=== PATIENT | male | born 1940 | race Caucasian/White ===

== ENCOUNTER 2017-10-08 12:31 | Emergency (ER) | payer MEDICARE, OTHER, SELFPAY ==
[2017-10-08 12:32] VITALS: BP 179/95; PULSE 64; RESP 20; TEMP 35.9; O2SAT 97; BMI 37.8
--- NOTE | 2017-10-08 14:00 | RAD_ITS ---
STUDY: X-RAY - LEFT SHOULDER REASON FOR EXAM: Male, 77 years old. Fall. Shoulder pain TECHNIQUE: 2 view(s) of the shoulder. COMPARISON: None. FINDINGS: There is moderate degenerative arthrosis of the glenohumeral articulation. There is degenerative arthrosis of the acromioclavicular joint without inferior osseous spur formation. Normal acromion. Normal humeral head and visualized proximal humerus. The soft tissue structures are unremarkable. Normal visualized pulmonary apex. 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 Electronically Signed: Alvin Martinez MD at 14:50 EDT Tel , Service support ,
--- NOTE | 2017-10-08 15:06 | ED.DCSUM_ITS ---
- ER Visit Summary Date of Service: 10/08/17 Chief Complaint: Left shoulder injury History of Present Illness: The patient is a 77 M who states that today after losing balance he started to fall and his left arm was AB adducted to 90? and was stretched behind him. He states he has a history of torn rotator cuff muscles but never did surgery for it. He has not seen orthopedics for some time and would prefer to see somebody locally. He states that he has limited range of motion because of the pain. He states that twice he felt the shoulder pop once as he got up after the injury once in the triage area. He is right- handed. Physical Examination: Afebrile vital signs are stable Patient is limited range of motion of the left shoulder secondary to pain. I am able to range it though painfully. He has a positive apprehension test. He is tender over the anterior capsule. No tenderness over supraspinatus or infraspinatus musculature. No tenderness over the pectoralis major muscles. No subscapularis tenderness. Vascular intact distally Test Results: X-rays did not reveal a fracture. Emergency Department Course and Treatment: This could be a muscle strain versus tear or could be a subluxation given the popping sensation he felt. Patient will be placed in a sling. Patient will rest we talked about treatment for frozen shoulder and how to prevent it. I will refer him to Dr. Wyatt he was on no doc orthopedics. He states he has pain medication at home from prior back surgery. Impression: 1. Left shoulder muscle strain This note was generated with [employer] dictation software. It may contain incorrect words, spelling, and punctuation that were not noted in review of the chart prior to signing ED Disposition - Plan for ED Patient: Disposition: Home or Assisted Living Chief Complaint: Upper Extremity Injury Instructions: ED Sprain Shoulder Referrals: Rahul Wyatt DO [STAFF PHYSICIAN] - (call to arrange follow up)
[2017-10-08 15:20] VITALS: PULSE 80; RESP 16; O2SAT 98
== END 2017-10-08 15:21 | disposition home or self-care (01) ==
PROVIDERS: Emergency Provider Emergency Medicine; Family Provider Family Medicine; PCP Family Medicine
DX: S46.912A Strain of unspecified muscle, fascia and tendon at shoulder and upper arm level, left arm, initial encounter (principal); X50.1XXA Overexertion from prolonged static or awkward postures, initial encounter; Y93.9 Activity, unspecified; Y92.9 Unspecified place or not applicable; E66.9 Obesity, unspecified; Z86.79 Personal history of other diseases of the circulatory system; Z86.39 Personal history of other endocrine, nutritional and metabolic disease; Z87.891 Personal history of nicotine dependence
CPT/HCPCS: 73030; 99283

== ENCOUNTER → 2018-09-20 | Outpatient (CLI) | payer MEDICARE, OTHER, SELFPAY ==
--- NOTE | 2018-09-20 15:14 | CT_ITS ---
STUDY: CT ABDOMEN AND PELVIS WITH CONTRAST REASON FOR EXAM: Male, 78 years old. Bloating x 5 days. RADIATION DOSAGE (If Supplied By Facility): CTDIvol = ( 18.73 ) mGy, DLP = ( 1398.15 ) mGycm TECHNIQUE: Transaxial images were obtained from the dome of the diaphragm to the symphysis pubis with oral contrast. 100 IV/Oral Isovue 300 was administered. Sagittal and coronal images were reconstructed. Individualized dose optimization techniques were used for this CT. COMPARISON: None. FINDINGS: The visualized lung bases are unremarkable. The visualized portions of the heart are within normal limits. Normal liver. The patent portal vein diameter is 14 mm. Normal gallbladder and extrahepatic biliary system. Normal spleen. There is some fatty infiltration of the pancreas, most prominent at the pancreatic head. Normal bilateral adrenal glands. Well-defined 2.7 x 2.45 x 2.65 cm cortical cyst seen at the tip of the upper pole of the right kidney. A second similar-appearing [id number] x 2.5 cm cortical cyst seen at the posterior midpole. Is a 1.55 x 1.2 x 1.4 cm hypodense cyst at the medial midpole of the left kidney. 5 mm rounded hypodensity consistent with a cyst seen at the tip of the left upper pole. No hydronephrosis. Normal visualized stomach. Normal small intestine. Normal colon. There is non-visualization of the appendix. There is mild to moderate atherosclerotic calcification of the abdominal aorta and proximal iliac arteries, without a demonstrated aneurysm. [id number] heterotrophic calcification also seen in the visualized common femoral arteries. Normal inferior vena cava. Normal retroperitoneum. Incompletely distended urinary bladder. Normal visualized prostate gland. Normal abdominal wall. There are diffuse degenerative changes of the visualized spine, including multilevel bridging anterior endplate osteophytes of the thoracic spine. The patient has undergone prior L4 laminectomies and posterior L4-5 fusion with metal hardware. Bilateral transpedicular screws at these levels are connected on either side the longitudinal metal rods. Degenerative change also noted at the pubic symphysis. Well corticated focal invaginations of the superior L2 and L3 vertebral endplates are consistent with benign Schmorl's nodes. CT/Abdomen/Pelvis WITH Contrast IMPRESSION: 1. The bowel is unremarkable without sign of distention/obstruction. The appendix is not visualized. 2. Bilateral renal cortical cysts, as described. No hydronephrosis. 3. Atherosclerotic vascular calcifications, as noted. No demonstrated aortic aneurysm. 4. Prior L4 laminectomies and posterior L4-5 fusion with metal hardware. There are multilevel degenerative changes of the spine. Electronically Signed: Buddy Portillo MD at 18:14 EDT , Service support ,
[2018-09-20 17:45] LABS: CREATININE FINGERSTICK 1.3 mg/dL (0.70-1.30)
== END | disposition home or self-care (01) ==
LOC: CT 15:11
PROVIDERS: Family Provider Internal Medicine; PCP Internal Medicine; Referring Provider Student in an Organized Health Care Education/Training Program; Visit Provider Student in an Organized Health Care Education/Training Program
DX: R10.31 Right lower quadrant pain (principal); R19.7 Diarrhea, unspecified; R11.0 Nausea
CPT/HCPCS: 74177; Q9967

== ENCOUNTER 2019-07-01 08:30 | Outpatient (RCR) | payer MEDICARE, OTHER, SELFPAY ==
--- NOTE | 2019-05-30 09:17 | HP.PTEVAL_ITS ---
Patient's Visit Information AIDEE MARTIN is a 78 year old M referred to Physical Therapy by Eyad Alexander DO with a diagnosis of Chronic neck pain. Date of Evaluation: 05/30/19 Physical Therapist: Servando Clarke, PT, ATC - Visit Plan Frequency: 2-3x /Week Duration: 4-6 Weeks Plan: Trial of c-tx today. 17#/10# 30 sec/10 sec x 10 min. Postural edu, DTR to c/s, PROM/mobs to c/s, Dry needling, C-Tx, and HEP - Subjective Subjective: Pt reports he has had neck pain for several weeks. Pt reports he had xrays recently that showed his neck is out of alignment. Pt reports his pain is intermittent in nature. Pt notes the only way to get rid of his pain is to lye down on his R side. Pt reports the pain originates in his neck and radiates down to his L shoulder. Pt notes he also has pain that radiates into his interscapula r region. Pt notes he had a cotisone injection a few weeks ago which helped his pain. 3/10 pain at rest, 7/10 pain at worst. - Pain neck pain Pain Intensity (Out of 10): 3 Pain Intensity Range: 7 - Objective Neuro: B UE sensation is WNL to light touch. B bicepital reflex= 1/3. Palpation: sig muscle guarding throughout the c/s. No obvious deformity. MMT: R UE is grossly 4+/5 throughout. L UE is 4/5 and painful secondary to prior injuries. ROM: Pt is severely limited with SB, extension, and retraction. Moderate limiteations with all other movements. Special tests: apleys compression and distraction tests are positive - Goals Goal 1:: Decrease neck pain x 50% to aid with IADL's Goal Time Frame: 4-6 Weeks Goal 2:: Decrease the frequency and intensity of R UE radiculopathy x 50% to aid with IADL's Goal Time Frame: 4-6 Weeks Goal 3:: I with HEP Goal Time Frame: 4-6 Weeks - Rehabilitation Potential Physical Therapy Diagnosis: Pt has R UE radiculopathy, neck pain, and limited c/s ROM secondary to deg changes in the c/s Rehabilitation Potential: Good - Anticipated Interventions Patient/Client Instruction: Educate patient on: Condition, Plan of Care For the Purpose of:: To improve self management Therapeutic Exercise to Include: Postural training For the Purpose of:: To decrease pain Manual Therapy Techniques to Include: Soft tissue mobilization For the Purpose of:: To decrease pain Intermittent cervical traction: Yes For the Purpose of:: To decrease pain Thank you for the opportunity to evaluate your patient. For Medicare and Medicare HMO plans, please review the plan of care and approve it. It will need to be FAXED BACK to us at [phone] for Medicare purposes. For Medicare only, by signing this I certify the plan of care. Please let me know if there are questions or concerns regarding this plan of care. Physician Signature: Date:
--- NOTE | 2019-07-01 09:28 | HP.PTDCSUM ---
It has been my pleasure to treat AIDEE MARTIN referred by Eyad Alexander DO, with the diagnosis of Chronic neck pain for a total of 9 visit(s). Discharge Date: Please see the following information for a summary of their discharge status. Subjective: No pain this date. Pt ready for discharge neck pain Pain Intensity (Out of 10): 0 % Improvement: 100 Objective/Function: Pt nasreen all Rx well.Pt is now pain free and has achieved all Rx goals. Goal 1:: Decrease neck pain x 50% to aid with IADL's Goal Progress: Goal Met Goal 2:: Decrease the frequency and intensity of R UE radiculopathy x 50% to aid with IADL's Goal Progress: Goal Met Goal 3:: I with HEP Goal Progress: Goal Met Plan: Discharge If there are questions or concerns regarding this patient's physical therapy, please feel free to call me at [phone]. Thank you for the referral of this patient. Sincerely, Servando Clarke, PT, ATC
== END 2019-07-01 10:27 | disposition home or self-care (01) ==
LOC: PT 08:30
PROVIDERS: PCP Student in an Organized Health Care Education/Training Program; Referring Provider Student in an Organized Health Care Education/Training Program; Visit Provider Student in an Organized Health Care Education/Training Program
DX: M25.511 Pain in right shoulder (principal); M54.2 Cervicalgia; G89.29 Other chronic pain
CPT/HCPCS: 97012; 97110; 97140; 97161

== ENCOUNTER 2020-05-20 10:56 | Outpatient (RCR) | payer MEDICARE, OTHER, SELFPAY ==
[2020-05-20] MEDS: COVID-19 VACC, MRNA(PFIZER)/PF 30 MCG/0.3 ML SYRINGE IM (09:08)
[2020-06-10] MEDS: COVID-19 VACC, MRNA(PFIZER)/PF 30 MCG/0.3 ML SYRINGE IM (08:43)
== END 2020-08-24 23:59 ==
LOC: IMMUN 10:56
PROVIDERS: PCP Student in an Organized Health Care Education/Training Program; Referring Provider Family Medicine; Visit Provider Family Medicine
DX: Z23 Encounter for immunization (principal)
CPT/HCPCS: 0001A; 0002A; 91300

== ENCOUNTER 2021-04-20 10:29 | Outpatient (CLI) | payer MEDICARE, OTHER, SELFPAY | END 2021-04-20 23:59 | disposition short-term general hospital (02) | LOC: LABSPEC 10:31 | PROVIDERS: PCP Student in an Organized Health Care Education/Training Program; Referring Provider Physician Assistant; Visit Provider Physician Assistant | DX: Z20.822 Contact with and (suspected) exposure to COVID-19 (principal) | CPT/HCPCS: 87635; U0003; U0005 ==

== ENCOUNTER 2021-06-14 11:00 | Outpatient (RCR) | payer MEDICARE, OTHER, SELFPAY ==
--- NOTE | 2021-02-18 10:43 | HP.PTEVAL_ITS ---
Patient's Visit Information AIDEE MARTIN is a 80 year old M referred to Physical Therapy by LIA Armas with a diagnosis of L hip trochanteric bursitis. Date of Evaluation: 02/18/21 Physical Therapist: Servando Clarke, PT, ATC - Visit Plan Frequency: 2x /Week Duration: 3 Weeks Plan: SKTC/DKTC, core strengthening, LE stretching, nustep, and HEP - Subjective Pt reports L hip has been sore for at least 6 months. Pt reports the pain was intermittent in nature, but has become constant now. Pt reports this limits his ability to side bend and rotate in his lumbar spine. 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 Pt reports he is in the most pain when he is lying on his back. Pt notes he experiences radicular symptoms that extend down his anterior thigh all the way to his knee. Pt denies any pain on the lateral a spect of his L hip on todays date. Pt reports standing and walking both tend to increase his pain the most. Pt reports he gets most of his relief from sitting down. L hip/LBP is 1/10 at rest, and increases to a 7/10 at worst. Pt reports he had LB surgery approximately 4 years ago. Occasional sleep difficulty secondary to pain - Pain LBP Pain Intensity (Out of 10): 1 Pain Intensity Range: 7 - Objective Neuro: B LE sensation is WNL to light touch. B patellar reflex= 1/3. MMT: B LE's are grossly 5/5 throughout. ROM: Pt is significantly limited in L and R side bending, moderately limited with flexion, and severely limited with extension. Repeated movements: SKTC/DKTC 15 sec x 3 ea decreased pain. Gait: Pt ambulates with a Trendelenburg gait pattern indicating gross core weakness - Balance/Special Test Scores Lower Extremity Functional Score: 25 - Goals Goal 1:: Decrease L LE pain x 50% to aid with sleep Goal Time Frame: 4-6 Weeks Goal 2:: Decrease the frequency and intensity of L LE radiculopathy x 50% to aid with tolerance for ambulation Goal Time Frame: 4-6 Weeks Goal 3:: Pt will be able to ambulate 340 feet without difficulty to aid with community ambulation Goal Time Frame: 4-6 Weeks Goal 4:: I with HEP Goal Time Frame: 4-6 Weeks - Rehabilitation Potential Physical Therapy Diagnosis: Pt has lbp, decreased lumbar spine ROM, and L LE radiculopathy secondary to deg changes in the L/S Rehabilitation Potential: Good - Anticipated Interventions Patient/Client Instruction: Educate patient on: Condition, Plan of Care For the Purpose of:: To improve self management Therapeutic Exercise to Include: Strength training, Body mechanics, Active ROM, Dynamic Lumbar Stabilization For the Purpose of:: To decrease pain, To increase ROM, To improve muscle performance and motor function Thank you for the opportunity to evaluate your patient. For Medicare and Medicare HMO plans, please review the plan of care and approve it. It will need to be FAXED BACK to us at [phone] for Medicare purposes. For Medicare only, by signing this I certify the plan of care. Please let me know if there are questions or concerns regarding this plan of care. Physician Signature: ___Date:
--- NOTE | 2021-08-30 13:15 | HP.PT.NRP ---
AIDEE MARTIN was seen in my office for initial evaluation on 02/18/21. The following Plan of Care was established for this patient: Initial Frequency: 2x /Week Initial Duration: 3 Weeks Patient/Client Instruction: Educate patient on: Condition, Plan of Care For the Purpose of:: To improve self management Therapeutic Exercise to Include: Strength training, Body mechanics, Active ROM, Dynamic Lumbar Stabilization For the Purpose of:: To decrease pain, To increase ROM, To improve muscle performance and motor function This patient was last seen in our office . Pertinent comments regarding their Physical therapy will appear below: Pt was last treated for L hip pain on the date of 05/16/21. Pt has not returned through todays date and is discontinued at this time. At this point I will be discontinuing this patient from physical therapy. I would be happy to see this patient again in the future if found appropriate by the physician. Thank you! Servando Clarke, PT, ATC Balance/Gait/Functional tests - Balance/Special Test Scores Lower Extremity Functional Score: 25
== END 2021-06-14 19:00 | disposition home or self-care (01) ==
LOC: PT 11:00
PROVIDERS: PCP Student in an Organized Health Care Education/Training Program; Referring Provider Nurse Practitioner Family; Visit Provider Nurse Practitioner Family
DX: M70.62 Trochanteric bursitis, left hip (principal); M46.96 Unspecified inflammatory spondylopathy, lumbar region; M46.1 Sacroiliitis, not elsewhere classified; M25.552 Pain in left hip; M51.37 Other intervertebral disc degeneration, lumbosacral region; M47.817 Spondylosis without myelopathy or radiculopathy, lumbosacral region; M54.17 Radiculopathy, lumbosacral region; M96.1 Postlaminectomy syndrome, not elsewhere classified; M48.07 Spinal stenosis, lumbosacral region; M53.3 Sacrococcygeal disorders, not elsewhere classified
CPT/HCPCS: 97110; 97161

== ENCOUNTER → 2023-02-20 | Outpatient (CLI) | payer MEDICARE, OTHER, SELFPAY | END | disposition home or self-care (01) | LOC: LABSPEC 15:37 | PROVIDERS: PCP Student in an Organized Health Care Education/Training Program; Referring Provider Dermatology; Visit Provider Dermatology | DX: H60.12 Cellulitis of left external ear (principal); L57.0 Actinic keratosis | CPT/HCPCS: 87070; 87077; 87186; 87205 ==